=== PATIENT | female | born 1980 | race Caucasian/White ===

== ENCOUNTER 2017-07-06 07:10 | Day surgery (SDC) | payer OTHER ==
[~2017-07-06] VITALS: Ht 165.1 cm; Wt 76.2 kg
[~2017-07-06 07:10] MED LIST: NO MEDICATIONS
[2017-07-06] MEDS ORDERED: LR 1,000 ML IV ONE (07:30)
[2017-07-06 07:33] LABS: MEAN CORPUSCULAR HEMOGLOBIN 29.9 pg (27.0-33.0); MEAN CORPUSCULAR HGB CONC 34.2 g/dl (32.0-36.5); MEAN CORPUSCULAR VOLUME 87.2 fl (80.0-96.0); PLATELET COUNT, AUTOMATED 231 10^3/uL (150-450); WHITE BLOOD COUNT 4.8 10^3/uL (4.0-10.0)
[2017-07-06] MEDS ORDERED: ROCURONIUM BROMIDE 50 MG/5 ML VIAL As Ordered ONE (07:52)
[2017-07-06] MEDS ORDERED: LIDOCAINE 2% INJ 100 MG/5 ML SDV (FOR ANES.) As Ordered ONE (07:52)
[2017-07-06] MEDS ORDERED: fentaNYL 100 MCG/2 ML INJECTION (J3010) As Ordered ONE (07:52)
[2017-07-06] MEDS ORDERED: MIDAZOLAM INJ 2 MG/2 ML VIAL (J2250) As Ordered ONE (07:52)
[2017-07-06] MEDS ORDERED: GLYCOPYRROLATE INJ 0.2 MG/ML 2 ML VIAL As Ordered ONE (07:52)
[2017-07-06] MEDS ORDERED: NEOSTIGMINE 10 MG/10 ML VIAL (J2710) As Ordered ONE (07:52)
[2017-07-06] MEDS ORDERED: PROPOFOL 200 MG/20 ML VIAL As Ordered ONE (07:52)
[2017-07-06] MEDS ORDERED: SUCCINYLCHOLINE 100 MG/5 ML SYRINGE (J0330) As Ordered ONE (07:52)
[2017-07-06] MEDS ORDERED: KETOROLAC 60 MG/2 ML VIAL (J1885) As Ordered ONE (07:52)
[2017-07-06] MEDS ORDERED: ONDANSETRON 4MG/2ML VIAL (J2405) As Ordered ONE (07:52)
[2017-07-06 08:03] LABS: CONTROL LINE HCG INT CTR LINE PRESENT
[2017-07-06] MEDS ORDERED: BUPIVACAINE HCL 0.25% 30 ML VIAL As Ordered ONE (08:38)
[2017-07-06] MEDS ORDERED: ONDANSETRON 4MG/2ML VIAL (J2405) IV PRN (10:45)
[2017-07-06] MEDS ORDERED: fentaNYL 100 MCG/2 ML INJECTION (J3010) IV PRN (10:45)
[2017-07-06] MEDS ORDERED: PERCOCET 5MG/325MG TAB PO PRN (10:45)
[2017-07-06] MEDS ORDERED: METOCLOPRAMIDE INJ 10MG/2ML VIAL (J2765) IV PRN (10:45)
[2017-07-06] MEDS ORDERED: LR 1,000 ML IV SCH (10:45)
--- NOTE | 2017-07-06 10:58 | RO ---
DATE OF PROCEDURE: 07/06/2017 PREOPERATIVE DIAGNOSIS: Satisfied parity. POSTOPERATIVE DIAGNOSIS: Satisfied parity. OPERATION PERFORMED: Bilateral laparoscopic salpingectomy. SURGEON: Merari Hankins MD [employer] SUPERVISOR: Wilmar Nelson MD ANESTHESIA: NED CLINICAL SERVICE: TAX ACCOUNTANT. INDICATION FOR OPERATION: Nadja is a 37-year-old 3, para 2-0-1-2, who has satisfied parity and desired permanent sterilization. She was counseled thoroughly in the clinic on the options for long acting reversible contraception and she declined all methods of contraception, strongly desiring a permanent sterilization. Notably she has two prior children and after their births she had an elective termination, so this is something that she had been considering for some time. MATERIALS FORWARDED TO LAB: Bilateral fallopian tubes. DESCRIPTION OF FINDINGS: Laparoscopic findings included a normal appearing uterus, fallopian tubes, ovaries, appendix, liver edge. INFECTION CLASSIFICATION: 2 ESTIMATED BLOOD LOSS: 5 mL. IV FLUIDS: 1200 mL Lactated Ringer's. URINE OUTPUT: 600 mL of clear yellow urine. DESCRIPTION OF OPERATION: After obtaining informed consent, Nadja was taken to the operating room. General endotracheal anesthesia was established and she was placed in low lithotomy position. She was prepped and draped in the usual sterile fashion and placed in Trendelenburg position. A Barron catheter was placed. A bivalve speculum was placed in the vagina and visualization of the cervix was obtained. The anterior lip of the cervix was grasped with a single tooth tenaculum and the uterus was sounded to 8 cm. A Hulka uterine manipulator was placed into the cervix and the tenaculum was removed with site hemostasis noted. The bivalve speculum was removed. She was taken out of Trendelenburg position and a 5 mm incision was made in the infraumbilical fold beneath the subcutaneous tissue after anesthetizing with 0.25% Marcaine. Bebe clamp was used to spread the subcutaneous tissue and the lower abdominal wall was manually grabbed and lifted up. An OptiView trocar was placed at a 90 degree angle. The laparoscope was advanced through the port. Intra-abdominal placement was confirmed. Continuous flow of carbon dioxide began to establish a pneumoperitoneum at 15 mmHg of pressure. We then made two more incisions laterally, both 5 mm, through which 5 mm trocars were placed under direct visualization. Pelvic and abdominal survey were conducted beginning at the anterior cul-de-sac and anterior portion of the uterus, which were normal in appearance. Left and right fallopian tubes, round ligaments, broad ligaments and ovaries were observed with normal appearance. The posterior cul-de-sac was observed to be normal. Survey of the upper abdomen revealed a normal appendix and a normal liver edge. At that point, we used the LigaSure device to excise along the fallopian tubes maintaining good distance between fallopian tube and ovary so that the blood supply to the ovary would not be compromised. Once the fallopian tubes were excised. we brought them up out of the abdomen through the trocars and sent them off the field to pathology. The lateral ports were removed under direct visualization and observed to be hemostatic. Pneumoperitoneum was released prior to removal of the umbilical port. Incisions were reapproximated with #4-0 Monocryl and DERMABOND. All instruments were removed from the vagina. The patient was returned to the supine position. Barron catheter was also removed. Sponge, lap and needle counts were correct times two. The patient tolerated the procedure well. She was awaken from general anesthesia and taken to the recovery room in good condition. CRISTAL
[2017-07-06 11:50] VITALS: BP 125/63
== END 2017-07-06 11:53 | disposition home or self-care (01) ==
LOC: M SDC 07:10
PROVIDERS: ATTEND Obstetrics & Gynecology
DX: Z30.2 Encounter for sterilization (principal); K21.9 Gastro-esophageal reflux disease without esophagitis; L30.9 Dermatitis, unspecified; Z72.0 Tobacco use
CPT/HCPCS: 36415; 58661; 84703; 85027; 86850; 86900; 86901; 88302; J1885; J2250; J2405; J2710; J3010